=== PATIENT | female | born 1975 | race Caucasian/White ===

== ENCOUNTER 2023-05-20 11:40 | Observation (INO) | payer MEDICAID, SELFPAY ==
[2023-05-20 11:41] VITALS: BP 135/86; PULSE 99; RESP 16; TEMP 36.1; O2SAT 99
--- NOTE | 2023-05-20 12:11 | EX.ED.SAOD ---
HPI History of Present Illness Chief Complaint: Substance Abuse Informant: patient Narrative Narrative: Presents here from [facility] in [place] for detox from fentanyl. She states she snorts fentanyl for months now. Last use was 2 days ago. She has been at the [facility] for 2 days. She states nausea and vomiting. Denies abdominal pain. She is a type I diabetic on insulin. She does not check her sugars. Denies fevers. She states she quit alcohol years ago. She also smokes marijuana cannot tell me when the last time she smoked marijuana. She is postmenopausal. Denies any allergies. She states she has not had help for detox in the past. Prior similar symptoms: Yes PFSH PFSH Allergy/AdvReac Type Severity Reaction Status Date / Time No Known Allergies Allergy Verified 05/20/23 11:41 Social History Smoking Status: Current every day smoker tobacco type: cigarettes ROS ROS ED Constitutional Constitutional ED: Denies chills, fever(s) or sweats Eyes Eyes: Denies change in vision ENT ENT ED: Denies dysphagia or sore throat Cardiovascular Cardiovascular: Denies chest pain, leg edema, palpitations or racing heartbeat Respiratory/Chest Respiratory/Chest: Denies cough, dyspnea or dyspnea on exertion Gastrointestinal Gastrointestinal: Reports nausea and vomiting; Denies abdominal pain or diarrhea Genitourinary Genitourinary ED: Denies dysuria, hematuria or urinary frequency Musculoskeletal Musculoskeletal: Denies back pain, extremity pain or neck pain Integumentary Denies rash or wounds Neurologic Neurologic: Denies headache(s), paresthesias or weakness EXAM Physical Exam Const Vital Signs: 05/20/23 11:41 Temperature 97.0 F L Temperature Source Temporal Pulse Rate 99 Respiratory Rate 16 Blood Pressure 135/86 H Blood Pressure Mean 102 Pulse Ox 99 Oxygen Delivery Method Room Air Positive cachectic Constitutional Narrative: Nontoxic General Appearance ED: cachectic Nutritional Appearance: cachectic HEENT Reports moist mucous membranes normocephalic and atraumatic Eyes PERRL, EOMs intact bilaterally and conjunctivae normal General Eye ED: Yes normal appearance of both eyes Neck no lymphadenopathy and supple General: Negative for tenderness Chest Wall Chest: Negative for tenderness Resp normal respiratory effort and normal air movement Effort and Inspection: symmetric chest movement; Negative for respiratory distress Cardio regular rate, regular rhythm and no murmurs Peripheral Pulses: pulses 2+ throughout GI normal to inspection, nondistended, normoactive bowel sounds and non-tender Palpation: Negative for guarding or rebound tenderness present Back/Spine no CVA tenderness and no thoracic nor lumbar tenderness Extremity normal to inspection General Extremety ED: Negative for edema or tenderness General Extremity: Negative for edema Neuro oriented x3 and no sensory deficits noted Sensorium / Orientation: awake and alert Psych Psych Narrative: Initially agitated at times when questioning however was able to calm down. Denies any suicidal or homicidal ideations. Skin no rashes or lesions noted and no wounds MDM MDM MDM Narrative Medical decision making narrative: Interventions / MDM: Differential diagnosis: Opioid dependence, nausea vomiting, diabetes Diagnosis considered but do not suspect: DKA My EKG interpretation: N/A Imaging independently reviewed and interpreted by myself: N/A External documents reviewed: N/A Test considered but not ordered:N/A ED course: Patient vital stable nontoxic. Initial evaluation she was agitated, left the room she calmed down was able to reevaluate the patient. Last use 2 days ago with nausea and vomiting. Will check labs to rule out any signs of DKA. Clinically no signs of DKA. Fingerstick will be ordered. Will give oral Zofran. 1330: Glucose 293, gap Is normal. No DKA. Patient ate a meal per nursing, discussed her insulin regimen, she only takes 30 units long-acting at night. She does not do short acting. We will give 5 units of short acting Humalog. Patient not currently vomiting. 1340: I spoke with hospitalist Dr. Way discussed patient's history for admission for opioid dependence and withdrawal symptoms. Re-evaluation: stable Disposition discussed with patient/family/significant other: Patient Case discussed with consulting clinician: Hospitalist This note was generated with Evergram dictation software. It may contain incorrect words, spelling, and punctuation that were not noted in checking the note before signing. Lab Data Attestation: I reviewed the patient's lab results. Labs: Laboratory Results - last 24 hr 05/20/23 05/20/23 05/20/23 12:06 12:18 12:40 WBC 7.6 RBC 5.18 Hgb 14.8 Hct 44.5 MCV 85.9 MCH 28.6 MCHC 33.3 RDW Std Deviation 42.1 RDW Coeff of Lisette 13.4 Plt Count 500 H MPV 8.7 Immature Gran % (Auto) 0.700 Neut % (Auto) 71.3 H Lymph % (Auto) 23.5 York % (Auto) 3.7 Eos % (Auto) 0.3 Baso % (Auto) 0.5 Absolute Neuts (auto) 5.4 Absolute Lymphs (auto) 1.79 Nucleated RBC % 0 Sodium 134 L Potassium 3.5 Chloride 103 Carbon Dioxide 25.0 Anion Gap 6 BUN 11 Creatinine 0.84 Estim Creat Clear Calc 50.65 Est GFR (MDRD) Af Amer 92 Est GFR (MDRD) Non-Af 76 BUN/Creatinine Ratio 13.0 Glucose 293 H Calcium 8.7 Urine Test Negative Urine Opiates Screen POSITIVE H Urine Methadone Screen NEGATIVE Ur Barbiturates Screen NEGATIVE Ur Phencyclidine Scrn NEGATIVE Ur Amphetamines Screen POSITIVE H MDMA (Ecstasy) Screen NEGATIVE U Benzodiazepines Scrn NEGATIVE Urine Cocaine Screen POSITIVE H U Cannabinoids Screen POSITIVE H Ur Drug Screen Comment Ethyl Alcohol < 3.0 POC Glucose 265 H Discharge Plan Dx/Rx/DC Orders Clinical Impression: Opioid dependence, Type 1 diabetes mellitus, Nausea & vomiting Disposition Disposition: Acute Care Hospital [facility] Discharge Date/Time: 05/20/23 15:19
[2023-05-20 12:18] VITALS: BMI 16.5
[2023-05-20] MEDS: Ondansetron ODT 4 MG Tablet PO (12:19)
[2023-05-20 12:37] LABS: Bedside Glucose 265 mg/dL (74-106)
[2023-05-20 12:39] LABS: Internal QC Validated? YES +Cl - CLEAR BKGD; Pregnancy, Urine Negative Negative
[2023-05-20 12:50] LABS: Absolute Lymphocyte Count 1.79 X10^3/uL (0.83-4.51); Absolute Neutrophil Count 5.4 X10^3/uL (2.0-7.7); Basophil# 0.04 X10^3/uL; Basophil% 0.5 % (0-1); Eosinophil# 0.02 X10^3/uL; Eosinophils% 0.3 % (0-5); Hematocrit 44.5 % (37-47); Hemoglobin 14.8 g/dL (12.0-15.0); Lymphocyte # 1.79 X10^3/ul (0.83-4.51); Lymphocyte % 23.5 % (19-41); Mean Corp Hgb Conc 33.3 g/dL (32-36); Mean Corpuscular Hgb 28.6 pg (27.0-32.0); Mean Corpuscular Volume 85.9 fL (81-99); Mean Platelet Vol. 8.7 fl (6.2-12.0); Monocyte# 0.28 X10^3/uL; Monocyte% 3.7 % (0-10); NRBC Flagged by Analyzer 0 % (0-5); Neutrophil # 5.44 X10^3/uL (2.7-7.7); Neutrophil % 71.3 % (47-70); Platelet Count 500 K/mm3 (150-450); RBC Distribution Width CV 13.4 % (11.6-14.6); RBC Distribution Width SD 42.1 fl (35.1-43.9); Red Blood Count 5.18 M/mm3 (4.2-5.4); White Blood Count 7.6 K/mm3 (4.4-11.0)
[2023-05-20 13:02] LABS: Anion Gap 6 (5-15); BUN 11 mg/dL (7-18); Calcium,Total 8.7 mg/dL (8.5-10.1); Chloride 103 mmol/L (98-107); Creatinine, Serum 0.84 mg/dL (0.55-1.02); EST Glomerular Filtration Rate 76 mL/min (>60); Est Glom Filt Rate - Afr Amer 92 mL/min (>60); Estimated Creatinine Clearance 50.65 ml/min; Glucose 293 mg/dL (74-106); Potassium 3.5 mmol/L (3.5-5.1); Sodium Level 134 mmol/L (136-145)
--- NOTE | 2023-05-20 13:16 | CM.ED ---
Social Work Referral Source: case find Referral Reason: no PCP/ [facility] SW met with patient and introduced herself and role as [facility] SW. Patient seated on hospital bed and agreeable to speak with SW. SW inquired about patient's insurance and current PCP. Patient verified insurance and reports she does have a PCP, Dr. Roz Woods in [place]. Patient declined a list of PCPs accepting new patients in network with her insurance. SW then inquired about patient's knowledge of the RAMP program and recent usage; patient reports being unsure of what to expect and reports fentanyl use. SW reviewed RAMP program including patient's belongings being locked up, no visitors and meeting with detox coordinator to discuss discharge/after care planning. Patient reports understanding and has no other questions at this time. Antonieta Shetty MSW, DEENA
--- NOTE | 2023-05-20 13:40 | NURSING ---
DR KEYANNA NOBLES
[2023-05-20 13:45] LABS: Amphetamine Urine VISTA POSITIVE (<1000 ng/mL); Barbiturate Urine VISTA NEGATIVE (< 200 ng/mL); Benzodiazepine Urine VISTA NEGATIVE (< 200 ng/mL); Cocaine Urine VISTA POSITIVE (< 300 ng/mL); Ecstacy Urine VISTA NEGATIVE (< 500 ng/mL); Methadone Urine VISTA NEGATIVE (< 300 ng/mL); PCP Urine VISTA NEGATIVE (< 25 ng/mL); THC Urine VISTA POSITIVE (< 50 ng/mL); Vista UDS pH Range 7
[2023-05-20] MEDS: Insulin Lispro 100 UNIT/ML INSULN.PEN SC ×2 (13:48→17:51)
[2023-05-20 13:49] LABS: Alcohol, Blood (Medical)-Serum < 3.0 mg/dL
--- NOTE | 2023-05-20 14:21 | HP.PCM_ITS ---
HPI - General General Date of Admission: 05/20/23 Date of Service: 05/20/23 Chief Complaint: Withdrawal from opioids (fentanyl) HPI Narrative UBALDO MORELOS, is a 47 F with a history of type 1 diabetes and fentanyl abuse and who presents to the hospital today with opioid withdrawal. She states she has been feeling overall uncomfortable has also had nausea and vomiting. Last use of fentanyl was 2 days ago. States she injects and smokes fentanyl. Denies any diarrhea or any abdominal cramps at this time. Patient also smokes marijuana. [facility] Allergy/AdvReac Type Severity Reaction Status Date / Time No Known Allergies Allergy Verified 05/20/23 11:41 Social History Smoking Status: Current every day smoker tobacco type: cigarettes ROS ROS Narrative Denies any chest pain or shortness of breath. All other systems reviewed and essentially negative or as above in the body of the history. Vital Signs Vital Signs Vital Signs: 05/20/23 11:41 Temperature 36.1 C L Temperature Source Temporal Pulse Rate 99 Respiratory Rate 16 Blood Pressure 135/86 H Blood Pressure Mean 102 Pulse Ox 99 Oxygen Delivery Method Room Air Weight Weight: 39.6 kg Body Mass Index (BMI) 16.5 Physical Exam Narrative General exam. Middle-aged woman who appears older than stated age, chronically ill appearing and cachectic HEENT. Oral mucosa slightly dry no pallor jaundice Neck. Neck is supple Heart. First and second heart sounds heard no murmurs Lungs. 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 Conscious alert and oriented x3. Cranial 2-12 grossly intact. Results Medical Records Data Attestation: I reviewed the patient's medical records Lab / Micro Data Attestation: I reviewed the patient's lab results. 05/20/23 12:40 05/20/23 12:40 Labs: Laboratory Results - last 24 hr 05/20/23 12:06: Urine Test Negative, Urine Opiates Screen POSITIVE H, Urine Methadone Screen NEGATIVE, Ur Barbiturates Screen NEGATIVE, Ur Phencyclidine Scrn NEGATIVE, Ur Amphetamines Screen POSITIVE H, MDMA (Ecstasy) Screen NEGATIVE, U Benzodiazepines Scrn NEGATIVE, Urine Cocaine Screen POSITIVE H, U Cannabinoids Screen POSITIVE H, Ur Drug Screen Comment 05/20/23 12:18: POC Glucose 265 H 05/20/23 12:40: WBC 7.6, RBC 5.18, Hgb 14.8, Hct 44.5, MCV 85.9, MCH 28.6, MCHC 33.3, RDW Std Deviation 42.1, RDW Coeff of Lisette 13.4, Plt Count 500 H, MPV 8.7, Immature Gran % (Auto) 0.700, Neut % (Auto) 71.3 H, Lymph % (Auto) 23.5, Mcclain % (Auto) 3.7, Eos % (Auto) 0.3, Baso % (Auto) 0.5, Absolute Neuts (auto) 5.4, Absolute Lymphs (auto) 1.79, Nucleated RBC % 0, Sodium 134 L, Potassium 3.5, Chloride 103, Carbon Dioxide 25.0, Anion Gap 6, BUN 11, Creatinine 0.84, Estim Creat Clear Calc 50.65, Est GFR (MDRD) Af Amer 92, Est GFR (MDRD) Non-Af 76, BUN/Creatinine Ratio 13.0, Glucose 293 H, Calcium 8.7, Ethyl Alcohol < 3.0 ABG Data Attestation: I personally reviewed and interpreted this ABG as follows: Assessment & Plan Assessment/Plan (1) Opioid withdrawal: PLAN: Plan Assessment and plan 1. Opioid abuse with fentanyl presenting with opiate withdrawal. Will admit to general medical floor on telemetry. Started on opiate withdrawal protocol with buprenorphine. Consult social work specialist to assist with commencing short-term long- term treatment. 2. Type 1 diabetes. Will check A1c to determine what long-term control has been like. Patient takes 30 units of basal insulin at home without any short acting insulin for mealtimes. We will start patient on 20 units of L[address] and place on insulin sliding scale. Monitor with Accu-Cheks before meals and at bedtime. Charges/Coding Visit Charges Inpatient E&M: 42612 Init Hosp L3
[2023-05-20 15:17] VITALS: BP 130/87; PULSE 89; RESP 14; TEMP 36.4; O2SAT 97
[2023-05-20 16:04] VITALS: BMI 14.9
[2023-05-20 16:41] VITALS: BP 166/88; PULSE 88; RESP 17; TEMP 36.8; O2SAT 98
[2023-05-20] MEDS: Ondansetron 8 MG Tablet PO (16:52)
[2023-05-20 17:16] LABS: Bedside Glucose 256 mg/dL (74-106)
[2023-05-20] MEDS: Buprenorphine HCl 2 MG TAB.SUBL SL (17:50)
[2023-05-20] MEDS: Insulin Glargine-YFGN 100 UNIT/ML Pen 20 UNIT SC (17:51)
[2023-05-20 20:46] VITALS: BP 123/86; PULSE 110; RESP 20; TEMP 37.2; O2SAT 98
[2023-05-20] MEDS: hydrOXYzine PAM 25 MG Capsule 50 MG PO (20:48)
[2023-05-20] MEDS: MELATONIN 3 MG TABLET PO (20:48)
[2023-05-20] MEDS: Gabapentin 300 MG Capsule PO (20:48)
[2023-05-21 01:45] VITALS: BP 141/97; PULSE 91; RESP 16; TEMP 36.6; O2SAT 98
[2023-05-21] MEDS: Dicyclomine 10 MG Capsule 20 MG PO (01:56)
[2023-05-21] MEDS: cloNIDine HCl 0.1 MG Tablet PO ×2 (01:56→20:32)
[2023-05-21] MEDS: Buprenorphine HCl 2 MG TAB.SUBL SL ×3 (01:56→17:18)
[2023-05-21 04:56] VITALS: BP 128/75; PULSE 95; RESP 16; TEMP 36.7; O2SAT 98
[2023-05-21] MEDS: Insulin Lispro 100 UNIT/ML INSULN.PEN SC ×4 (06:30→21:54)
[2023-05-21 06:57] LABS: Bedside Glucose 428 mg/dL (74-106)
[2023-05-21 07:47] LABS: Hemoglobin A1c 13.8 % (3.8-5.6)
[2023-05-21 09:05] VITALS: BP 131/71; PULSE 102; RESP 18; TEMP 37.1; O2SAT 96
[2023-05-21] MEDS: Ensure Plus High Protein 120 ML LIQUID PO ×2 (09:05→11:12)
[2023-05-21] MEDS: Gabapentin 300 MG Capsule PO (09:05)
[2023-05-21] MEDS: Enoxaparin 40 MG/0.4 ML Syringe SC (09:07)
[2023-05-21 11:31] LABS: Bedside Glucose 298 mg/dL (74-106)
[2023-05-21] MEDS: Fluconazole 100 MG Tablet PO (12:11)
[2023-05-21 15:05] VITALS: BP 155/90; PULSE 95; RESP 18; TEMP 36.8; O2SAT 99
[2023-05-21] MEDS: Glucerna Shake 120 ML LIQUID PO ×3 (15:16→21:08)
--- NOTE | 2023-05-21 16:21 | CASEMGMT ---
RN CM into pt room, pt lying in bed. Pt is interested in having a BGM and obtaining here at [facility]. TC to [facility] Retail pharmacy, they can deliver to room. Rx signed by hospitalistayaz to retail pharmacy. Updated charge nurse for education to pt when arrives to floor. Pt denies any further needs at this time.
--- NOTE | 2023-05-21 16:30 | CASEMGMT ---
Social Work SW received referral from Marketing Consultant. SW met with pt and introduced self and role of SW. Pt states she was evicted from her home in October and has been living in the [facility] since this time. Pt states that she is not eating or caring for her health. Pt denies having support system. Pt stating she is hopeful she can go to [facility] inpatient treatment center at time of discharge and that they will assist her with finding housing after she completes drug rehab program. Support and encouragement provided. Addiction Therapist to follow up for d/c planning. RNCM notified of need for glucometer. GAEL Nicholson
[2023-05-21] MEDS: Insulin Glargine-YFGN 100 UNIT/ML Pen 20 UNIT SC (17:13)
[2023-05-21 17:25] LABS: Bedside Glucose 207 mg/dL (74-106)
--- NOTE | 2023-05-21 17:38 | PCM.PN.HOSP ---
Reason for Visit Reason for Visit: Diagnoses Opioid use, unspecified with withdrawal (05/20/23) Subjective Subjective Patient was seen and examined today, I talked with addiction mental health social worker about her care, there is a plan for perhaps getting the patient into an inpatient detox facility when she is discharged from the hospital here. Patient complains about a raised area on her left forearm where she injects, she is concerned it is an abscess, she also is concerned that if she is placed on antibiotics she would get a yeast infection. I discussed these things with her today. Objective Data Objective Data Vital Signs: Vital Signs Temp Pulse Resp BP Pulse Ox O2 Del Method 98.2 F 95 18 155/90 H 99 Room Air 05/21/23 15:05 05/21/23 15:05 05/21/23 15:05 05/21/23 15:05 05/21/23 15:05 05/21/23 15:05 Oxygen Delivery Method Room Air Weight: 35.834 kg Body Mass Index (BMI) 14.9 Intake & Output: Intake and Output for Last 24 Hours 05/19/23 05/20/23 05/21/23 23:59 23:59 23:59 Intake Total 350 / 350 350 / 350 Balance 350 / 350 350 / 350 Medical Nutrition Assessment Dietitian: Malnutrition Criteria Met Start: 05/21/23 13:25 Freq: Status: Active Protocol: Document 05/21/23 13:25 MACHELLE (Rec: 05/21/23 13:26 MACHELLE [id number]) Nutrition Malnutrition Evidence of Malnutrition Exists Yes Malnutrition (severe): Chronic,Social/Behavioral/ Environmental Evidenced By Suboptimal Energy Intake ( Severe),Weight Loss (Severe), Physical Changes (Severe) Clinical Problem Altered Nutrient-Related Laboratory Values Etiology related to diabetes Signs/Symptoms as evidenced by gluc 293 and A1c = 13.8 Status Active Problem Chronic Disease or Condition Related Malnutrition Etiology related to drug abuse and inadequate energy intake Signs/Symptoms as evidenced by 28.4% unintended wt loss and pt meeting <75% of est nutritional needs x 1 yr - obvious fat / muscle wasting throughout body. Status Active Problem Recommendation Dietitian Recommendations/Changes Will change diet to 1800 tereza to better meet pt est nutritional needs for wt gain Will change ONS from ensure plus high protein to glucerna shake d/t issues w/ increased gluc levels Monitor for s/s of refeeding syndrome Lab / Micro Data 05/20/23 12:40 05/20/23 12:40 Labs: Laboratory Results - last 24 hr 05/20/23 12:40: Hemoglobin A1c 13.8 H 05/21/23 06:27: POC Glucose 428 H 05/21/23 11:10: POC Glucose 298 H 05/21/23 16:10: POC Glucose 207 H Physical Exam Const alert, oriented x3 and no apparent distress Constitutional Narrative: Patient appears much older than her stated age, patient appears very cachectic General Appearance: cooperative, well kempt and well developed Orientation / Consciousness: awake, oriented to person, oriented to place and oriented to time HEENT normocephalic, head/scalp atraumatic and moist oral mucous membranes Eyes PERRL, EOMs intact bilaterally and conjunctivae normal Neck no lymphadenopathy, supple, no JVD, thyroid normal and no carotid bruits General: trachea midline Resp normal respiratory effort, no retractions, no use of accessory muscles and clear to auscultation bilaterally Auscultation: Negative for rales, rhonchi or wheezes Cardio regular rate, regular rhythm, S1 normal heart sound, S2 normal heart sound, no murmurs, no rub and no gallops GI normal to inspection, nondistended, normoactive bowel sounds, soft to palpation, non-tender and non-distended Extremity Extremity Narrative: Patient has a raised area approximately 2 cm over the anterior surface of the left forearm just distal to the elbow area, this area is movable and fluctuant Skin Skin Narrative: Patient has a fluctuant movable area underneath the skin of her left forearm just distal to the left elbow area on the upper surface of the forearm, no redness is noted around the area. Neuro oriented x3, CN's II-XII intact bilaterally, moves all extremities, no focal motor deficits and no sensory deficits noted Sensorium / Orientation: awake, alert, oriented to person, oriented to place and oriented to time Speech: speech normal Psych affect normal Assessment & Plan Assessment/Plan (1) Opioid withdrawal: PLAN: Plan 1. Acute opiate withdrawal-patient will continue on her present medications #2 polysubstance abuse-complicates care, medical course, recovery, and prognosis #3 chronic severe protein and caloric malnutrition-as evidenced by signs and symptoms of malnutrition resulting from less than 75% p.o. intake/inadequate energy intake and 28.4% unintended weight loss x1 year-Glucerna shake dietary supplement will be supplied, and increased energy diet and increase protein diet as well as increase carbohydrate diet was ordered by nutritional services #4 type 1 diabetes-blood sugars will be monitored, I filled out a prescription for the patient to get a glucose monitor as an outpatient. #5 superficial abscess of the left forearm-I placed the patient on doxycycline and placed her on oral Diflucan for prevention of yeast infection. Total clinical time spent by myself addressing the patient's medical issues, reviewing all of her data, and collaborating with patient's care team: 35 minutes Charges/Coding Visit Charges Inpatient E&M: 44323 Subs Hosp L2
[2023-05-21] MEDS: hydrOXYzine PAM 25 MG Capsule 50 MG PO (20:33)
[2023-05-21 21:05] VITALS: BP 160/75; PULSE 95; RESP 16; TEMP 36.6; O2SAT 100
[2023-05-21] MEDS: Doxycycline 100 MG CAPSULE PO (21:08)
[2023-05-21] MEDS: traZODone 100 MG Tablet PO (21:08)
[2023-05-21] MEDS: MELATONIN 3 MG TABLET PO (21:08)
[2023-05-21 21:29] LABS: Bedside Glucose 341 mg/dL (74-106)
[2023-05-22] MEDS: Buprenorphine HCl 2 MG TAB.SUBL SL ×3 (01:53→17:29)
[2023-05-22 06:37] LABS: Bedside Glucose 99 mg/dL (74-106)
[2023-05-22 10:49] VITALS: BP 127/74; PULSE 83; RESP 16; TEMP 36.8; O2SAT 98
[2023-05-22] MEDS: Doxycycline 100 MG CAPSULE PO ×2 (10:53→21:24)
[2023-05-22] MEDS: Fluconazole 100 MG Tablet PO (10:54)
[2023-05-22] MEDS: Enoxaparin 40 MG/0.4 ML Syringe SC (10:55)
[2023-05-22] MEDS: Glucerna Shake 120 ML LIQUID PO ×4 (10:55→21:24)
[2023-05-22] MEDS: Insulin Lispro 100 UNIT/ML INSULN.PEN SC ×3 (11:25→21:29)
[2023-05-22 11:46] LABS: Bedside Glucose 219 mg/dL (74-106)
[2023-05-22] MEDS: Gabapentin 400 MG Capsule PO (16:04)
[2023-05-22 16:05] VITALS: BP 137/81; PULSE 68; RESP 16; TEMP 36.6; O2SAT 98
[2023-05-22] MEDS: Insulin Glargine-YFGN 100 UNIT/ML Pen 20 UNIT SC (16:59)
[2023-05-22 17:18] LABS: Bedside Glucose 273 mg/dL (74-106)
--- NOTE | 2023-05-22 17:24 | PCM.PN.HOSP ---
Reason for Visit Reason for Visit: Diagnoses Opioid use, unspecified with withdrawal (05/20/23) Subjective Subjective Patient was seen and examined today, she complains of neuropathic pain, she states that she takes gabapentin as an outpatient-patient is not on program gabapentin here but she is getting it as needed but does not seem to realize it. I told her that I would increase her gabapentin to 400 mg every 8 hours, she states she takes it at night but she has not been getting it at night. I have elected at this time to have her gabapentin remain as as needed. Objective Data Objective Data Vital Signs: Vital Signs Temp Pulse Resp BP Pulse Ox O2 Del Method 98 F 68 16 137/81 H 98 Room Air 05/22/23 16:05 05/22/23 16:05 05/22/23 16:05 05/22/23 16:05 05/22/23 16:05 05/22/23 16:05 Oxygen Delivery Method Room Air Weight: 35.834 kg Body Mass Index (BMI) 14.9 Intake & Output: Intake and Output for Last 24 Hours 05/20/23 05/21/23 05/22/23 23:59 23:59 23:59 Intake Total 350 / 350 350 / 350 Balance 350 / 350 350 / 350 Medical Nutrition Assessment Dietitian: Malnutrition Criteria Met Start: 05/21/23 13:25 Freq: Status: Active Protocol: Document 05/21/23 13:25 MACHELLE (Rec: 05/21/23 13:26 MACHELLE [id number]) Nutrition Malnutrition Evidence of Malnutrition Exists Yes Malnutrition (severe): Chronic,Social/Behavioral/ Environmental Evidenced By Suboptimal Energy Intake ( Severe),Weight Loss (Severe), Physical Changes (Severe) Clinical Problem Altered Nutrient-Related Laboratory Values Etiology related to diabetes Signs/Symptoms as evidenced by gluc 293 and A1c = 13.8 Status Active Problem Chronic Disease or Condition Related Malnutrition Etiology related to drug abuse and inadequate energy intake Signs/Symptoms as evidenced by 28.4% unintended wt loss and pt meeting <75% of est nutritional needs x 1 yr - obvious fat / muscle wasting throughout body. Status Active Problem Recommendation Dietitian Recommendations/Changes Will change diet to 1800 tereza to better meet pt est nutritional needs for wt gain Will change ONS from ensure plus high protein to glucerna shake d/t issues w/ increased gluc levels Monitor for s/s of refeeding syndrome Lab / Micro Data 05/20/23 12:40 05/20/23 12:40 Labs: Laboratory Results - last 24 hr 05/21/23 16:10: POC Glucose 207 H 05/21/23 21:06: POC Glucose 341 H 05/22/23 06:18: POC Glucose 99 05/22/23 11:24: POC Glucose 219 H 05/22/23 16:57: POC Glucose 273 H Physical Exam Narrative alert, oriented x3 and no apparent distress Constitutional Narrative: Patient appears much older than her stated age, patient appears very cachectic General Appearance: cooperative, well kempt and well developed Orientation / Consciousness: awake, oriented to person, oriented to place and oriented to time HEENT normocephalic, head/scalp atraumatic and moist oral mucous membranes Eyes PERRL, EOMs intact bilaterally and conjunctivae normal Neck no lymphadenopathy, supple, no JVD, thyroid normal and no carotid bruits General: trachea midline Resp normal respiratory effort, no retractions, no use of accessory muscles and clear to auscultation bilaterally Auscultation: Negative for rales, rhonchi or wheezes Cardio regular rate, regular rhythm, S1 normal heart sound, S2 normal heart sound, no murmurs, no rub and no gallops GI normal to inspection, nondistended, normoactive bowel sounds, soft to palpation, non-tender and non-distended Extremity Extremity Narrative: Patient has a raised area approximately 2 cm over the anterior surface of the left forearm just distal to the elbow area, this area is movable and fluctuant Skin Skin Narrative: Patient has a fluctuant movable area underneath the skin of her left forearm just distal to the left elbow area on the upper surface of the forearm, no redness is noted around the area. Neuro oriented x3, CN's II-XII intact bilaterally, moves all extremities, no focal motor deficits and no sensory deficits noted Sensorium / Orientation: awake, alert, oriented to person, oriented to place and oriented to time Speech: speech normal Psych affect normal Assessment & Plan Assessment/Plan (1) Opioid withdrawal: PLAN: Plan 1. Acute opiate withdrawal-patient will continue on her present medications #2 polysubstance abuse-complicates care, medical course, recovery, and prognosis #3 chronic severe protein and caloric malnutrition-as evidenced by signs and symptoms of malnutrition resulting from less than 75% p.o. intake/inadequate energy intake and 28.4% unintended weight loss x1 year-Glucerna evelynke dietary supplement will be supplied, and increased energy diet and increase protein diet as well as increase carbohydrate diet was ordered by nutritional services #4 type 1 diabetes-blood sugars will be monitored, I filled out a prescription for the patient to get a glucose monitor as an outpatient. #5 superficial abscess of the left forearm-I placed the patient on doxycycline and placed her on oral Diflucan for prevention of yeast infection. 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 Total clinical time spent by myself addressing the patient's medical issues, reviewing all of her data, and collaborating with patient's care team: 25 minutes Charges/Coding Visit Charges Inpatient E&M: 05575 Subs Hosp L1
[2023-05-22 22:00] VITALS: BP 147/63; PULSE 82; RESP 16; TEMP 36.6; O2SAT 98
[2023-05-22 22:02] LABS: Bedside Glucose 157 mg/dL (74-106)
[2023-05-23] MEDS: hydrOXYzine PAM 25 MG Capsule 50 MG PO ×2 (00:07→13:57)
[2023-05-23] MEDS: Gabapentin 400 MG Capsule PO ×3 (00:08→21:14)
[2023-05-23 04:00] VITALS: BP 153/83; PULSE 88; RESP 16; TEMP 36.8; O2SAT 99
[2023-05-23] MEDS: Buprenorphine HCl 2 MG TAB.SUBL SL (05:59)
[2023-05-23] MEDS: Insulin Lispro 100 UNIT/ML INSULN.PEN SC ×4 (06:40→21:19)
[2023-05-23 07:00] LABS: Bedside Glucose 368 mg/dL (74-106)
--- NOTE | 2023-05-23 08:32 | PCM.PN.HOSP ---
Reason for Visit Reason for Visit: Diagnoses Opioid use, unspecified with withdrawal (05/20/23) Subjective Subjective Patient was seen and examined today, she is still complaining of discomfort over the superficial abscess on her left forearm, she remains on doxycycline at this time. Patient's blood sugar was high this morning, I elected to increase her long-acting insulin to 25 units daily with dinner. Objective Data Objective Data Vital Signs: Vital Signs Temp Pulse Resp BP Pulse Ox O2 Del Method 98.3 F 88 16 153/83 H 99 Room Air 05/23/23 04:00 05/23/23 04:00 05/23/23 04:00 05/23/23 04:00 05/23/23 04:00 05/23/23 04:00 Oxygen Delivery Method Room Air Weight: 35.834 kg Body Mass Index (BMI) 14.9 Intake & Output: Intake and Output for Last 24 Hours 05/21/23 05/22/23 05/23/23 23:59 23:59 23:59 Intake Total 350 / 350 300 / 300 Balance 350 / 350 300 / 300 Medical Nutrition Assessment Dietitian: Malnutrition Criteria Met Start: 05/21/23 13:25 Freq: Status: Active Protocol: Document 05/21/23 13:25 MACHELLE (Rec: 05/21/23 13:26 MACHELLE [id number]) Nutrition Malnutrition Evidence of Malnutrition Exists Yes Malnutrition (severe): Chronic,Social/Behavioral/ Environmental Evidenced By Suboptimal Energy Intake ( Severe),Weight Loss (Severe), Physical Changes (Severe) Clinical Problem Altered Nutrient-Related Laboratory Values Etiology related to diabetes Signs/Symptoms as evidenced by gluc 293 and A1c = 13.8 Status Active Problem Chronic Disease or Condition Related Malnutrition Etiology related to drug abuse and inadequate energy intake Signs/Symptoms as evidenced by 28.4% unintended wt loss and pt meeting <75% of est nutritional needs x 1 yr - obvious fat / muscle wasting throughout body. Status Active Problem Recommendation Dietitian Recommendations/Changes Will change diet to 1800 tereza to better meet pt est nutritional needs for wt gain Will change ONS from ensure plus high protein to glucerna shake d/t issues w/ increased gluc levels Monitor for s/s of refeeding syndrome Lab / Micro Data 05/20/23 12:40 05/20/23 12:40 Labs: Laboratory Results - last 24 hr 05/22/23 11:24: POC Glucose 219 H 05/22/23 16:57: POC Glucose 273 H 05/22/23 21:28: POC Glucose 157 H 05/23/23 06:39: POC Glucose 368 H Physical Exam Narrative alert, oriented x3 and no apparent distress Constitutional Narrative: Patient appears much older than her stated age, patient appears very cachectic General Appearance: cooperative, well kempt and well developed Orientation / Consciousness: awake, oriented to person, oriented to place and oriented to time HEENT normocephalic, head/scalp atraumatic and moist oral mucous membranes Eyes PERRL, EOMs intact bilaterally and conjunctivae normal Neck no lymphadenopathy, supple, no JVD, thyroid normal and no carotid bruits General: trachea midline Resp normal respiratory effort, no retractions, no use of accessory muscles and clear to auscultation bilaterally Auscultation: Negative for rales, rhonchi or wheezes Cardio regular rate, regular rhythm, S1 normal heart sound, S2 normal heart sound, no murmurs, no rub and no gallops GI normal to inspection, nondistended, normoactive bowel sounds, soft to palpation, non-tender and non-distended Extremity Extremity Narrative: Patient has a raised area approximately 2 cm over the anterior surface of the left forearm just distal to the elbow area, this area is movable and fluctuant Skin Skin Narrative: Patient has a fluctuant movable area underneath the skin of her left forearm just distal to the left elbow area on the upper surface of the forearm, no redness is noted around the area. Neuro oriented x3, CN's II-XII intact bilaterally, moves all extremities, no focal motor deficits and no sensory deficits noted Sensorium / Orientation: awake, alert, oriented to person, oriented to place and oriented to time Speech: speech normal Psych affect normal Assessment & Plan Assessment/Plan (1) Opioid withdrawal: PLAN: Plan 1. Acute opiate withdrawal-patient will continue on her present medications #2 polysubstance abuse-complicates care, medical course, recovery, and prognosis #3 chronic severe protein and caloric malnutrition-as evidenced by signs and symptoms of malnutrition resulting from less than 75% p.o. intake/inadequate energy intake and 28.4% unintended weight loss x1 year-Glucerna shake dietary supplement will be supplied, and increased energy diet and increase protein diet as well as increase carbohydrate diet was ordered by nutritional services #4 type 1 diabetes-blood sugars will be monitored, I filled out a prescription for the patient to get a glucose monitor as an outpatient. #5 superficial abscess of the left forearm-patient remains on doxycycline, I do not think the abscessed area on her left forearm is getting larger, it is not reddened #6 neuropathy secondary to type 1 diabetes-again patient will receive gabapentin as needed 400 mg 3 times daily. Total clinical time spent by myself addressing the patient's medical issues, reviewing all of her data, and collaborating with patient's care team: 25 minutes Charges/Coding Visit Charges Inpatient E&M: 96868 Subs Hosp L1
[2023-05-23] MEDS: Doxycycline 100 MG CAPSULE PO ×2 (09:54→21:14)
[2023-05-23] MEDS: Enoxaparin 40 MG/0.4 ML Syringe SC (09:54)
[2023-05-23] MEDS: Fluconazole 100 MG Tablet PO (09:54)
[2023-05-23 10:00] VITALS: BP 128/69; PULSE 96; RESP 16; TEMP 36.8; O2SAT 98
[2023-05-23] MEDS: Senna Tablet 2 TABLET PO (11:25)
[2023-05-23 11:44] LABS: Bedside Glucose 257 mg/dL (74-106)
--- NOTE | 2023-05-23 12:55 | NS ---
Addendum entered and electronically signed by Rachelel Camargo 05/23/23 13:08: Diet will be liberalized to carbohydrate-controlled to allow for extra calories/protein at meals so that patient is more content and not still hungry. Original Note: Pt complaining to dietary staff that she is not receiving enough food at meals and is still hungry. Pt with BMI 14.9 and with reported food insecurity---will change diet to carbohydrate-controlled without caloric restriction and allow extra protein at meals if pt desires. Discussed with Shahida in diet office to confirm dietary changes. Rachelle Camargo, MS, RD, LD
[2023-05-23] MEDS: Glucerna Shake 120 ML LIQUID PO ×2 (13:57→16:28)
[2023-05-23 16:00] VITALS: BP 128/62; PULSE 72; RESP 16; TEMP 36.8; O2SAT 96
[2023-05-23] MEDS: Insulin Glargine-YFGN 100 UNIT/ML Pen 25 UNIT SC (16:29)
[2023-05-23 16:35] LABS: Bedside Glucose 314 mg/dL (74-106)
[2023-05-23 20:09] VITALS: BP 156/70; PULSE 102; RESP 16; TEMP 37.4; O2SAT 97
[2023-05-23] MEDS: traZODone 100 MG Tablet PO (21:13)
[2023-05-23 23:22] LABS: Bedside Glucose 292 mg/dL (74-106)
[2023-05-24 02:00] VITALS: BP 127/59; PULSE 96; RESP 18; TEMP 36.6; O2SAT 96
[2023-05-24] MEDS: Insulin Lispro 100 UNIT/ML INSULN.PEN SC ×3 (06:32→21:54)
[2023-05-24 06:54] LABS: Bedside Glucose 265 mg/dL (74-106)
--- NOTE | 2023-05-24 07:54 | DS.PCM_ITS ---
Providers Date of Admission: 05/20/23 Date of Discharge: 05/24/23 Primary Care Physician: No Primary Care Phys Reason For Visit: OPIOID DEPENDENCE, DIABETETES Diagnosis Discharge Diagnosis (1) Opioid withdrawal: Status: Acute Code(s): F11.93 - Opioid use, unspecified with withdrawal Medications at Discharge Home Medications doxycycline monohydrate 100 mg capsule 100 mg PO BID #10 caps 05/24/23 insulin glargine-yfgn 100 unit/mL (3 mL) subcutaneous pen 25 unit (0.25 mL) subcut DINNER #15 mL 05/24/23 Hospital Course Summary of Care Provided Minutes Spent on Discharge: 35 Hospital Course: Patient is a 47-year-old lady with history of diabetes mellitus type 1 admitted with acute opioid withdrawal 1. Acute opioid withdrawal ? Patient admitted to a monitored bed managed with Subutex taper 2. Chronic severe protein and caloric malnutrition -as evidenced by signs and symptoms of malnutrition resulting from less than 75% p.o. intake/inadequate energy intake and 28.4% unintended weight loss x1 year- Glucerna shake dietary supplement will be supplied, and increased energy diet and increase protein diet as well as increase carbohydrate diet was ordered by nutritional services 3. Diabetes mellitus type 1 ? Prescription written for insulin on discharge 4. Superficial abscess involving the left forearm ? Patient was managed with doxycycline 5. Diabetic polyneuropathy patient was placed on gabapentin Physical Exam Narrative GENERAL: cooperative HEENT: Atraumatic; normocephalic EYES; Anicteric, Normal Conjunctiva NECK; supple, normal thyroid, RESPIRATORY: Diminished to auscultation CARDIOVASCULAR: Regular S1 S2, GI: soft, normoactive bowel sounds, : No Renal angle tenderness; EXTREMITIES: No edema, no clubbing, MUSCULOSKELETAL: no muscle wasting NEURO: Awake; no lateralizing signs. SKIN: No Rash PSYCH; Flat affect Medical Records Data Medical Nutrition Assessment Dietitian: Malnutrition Criteria Met Start: 05/21/23 13:25 Freq: Status: Active Protocol: Document 05/21/23 13:25 MACHELLE (Rec: 05/21/23 13:26 MACHELLE [id number]) Nutrition Malnutrition Evidence of Malnutrition Exists Yes Malnutrition (severe): Chronic,Social/Behavioral/ Environmental Evidenced By Suboptimal Energy Intake ( Severe),Weight Loss (Severe), Physical Changes (Severe) Clinical Problem Altered Nutrient-Related Laboratory Values Etiology related to diabetes Signs/Symptoms as evidenced by gluc 293 and A1c = 13.8 Status Active Problem Chronic Disease or Condition Related Malnutrition Etiology related to drug abuse and inadequate energy intake Signs/Symptoms as evidenced by 28.4% unintended wt loss and pt meeting <75% of est nutritional needs x 1 yr - obvious fat / muscle wasting throughout body. Status Active Problem Recommendation Dietitian Recommendations/Changes Will change diet to 1800 tereza to better meet pt est nutritional needs for wt gain Will change ONS from ensure plus high protein to glucerna shake d/t issues w/ increased gluc levels Monitor for s/s of refeeding syndrome Weight / BMI Weight Weight: 35.834 kg Body Mass Index (BMI) 14.9 ABG / Lab / Microbiology Data 05/20/23 12:40 05/20/23 12:40 Laboratory: Laboratory Results - last 24 hr 05/23/23 11:20: POC Glucose 257 H 05/23/23 16:16: POC Glucose 314 H 05/23/23 21:18: POC Glucose 292 H 05/24/23 06:30: POC Glucose 265 H D/C Instructions Discharge Diet: 1800 Calorie Control Diet Discharge Activity: Return to Normal Activity Call your doctor if you observe: Fever of 101 or Higher, Shortness of breath, Fainting spells and Chest pain Meaningful Use Info Meaningful Use Diagnoses (Choose all that apply): None applicable Discharge Plan Admission Admit Date/Time: 05/20/23 14:02 Attending Provider: Giuseppe Culp Primary Care Provider: Care Physician,No Primary Consulting Providers: Glory Way; Zhao Toribio Discharge Orders/Prescriptions Prescriptions: New insulin glargine-yfgn 100 unit/mL (3 mL) Insulin Pen 25 unit subcut DINNER Qty: 15 0RF doxycycline monohydrate 100 mg Capsule 100 mg PO BID Qty: 10 0RF Referrals / Follow Up: Care Physician,No Primary [Primary Care Provider] - Disposition Disposition (needs filled in before D/C Order can be placed): Home, Self Care Charges/Coding Visit Charges Inpatient E&M: 05347 Disch Hosp >30min
[2023-05-24 09:08] VITALS: BP 128/75; PULSE 102; RESP 16; TEMP 36.6; O2SAT 97
[2023-05-24] MEDS: Enoxaparin 40 MG/0.4 ML Syringe SC (09:10)
[2023-05-24] MEDS: Doxycycline 100 MG CAPSULE PO ×2 (09:10→21:52)
[2023-05-24] MEDS: Fluconazole 100 MG Tablet PO (09:10)
[2023-05-24] MEDS: Glucerna Shake 120 ML LIQUID PO ×2 (09:14→14:52)
[2023-05-24] MEDS: hydrOXYzine PAM 25 MG Capsule 50 MG PO ×2 (09:14→21:52)
--- NOTE | 2023-05-24 11:25 | PHA.DC_ITS ---
Pharmacy [facility] has performed discharge medication reconciliation and counseling for this patient. Patient has had Lantus before, did not health counselor 1. DOXYCYCLINE 100MG PO BID X 5 DAYS The patient's discharge medication list was reviewed for discrepancies and discrepancies were resolved. The patient was counseled on the following discharge medications and changes in medications for homegoing were reviewed. The Reason for Use, instructions for use, and potential side effects were reviewed for all new medications. The patient's questions regarding all of their medications were answered. The patient was able to verbally demonstrate an understanding of their discharge medications. Patient counseled by pharmacy technician assistantJose. Medications at Discharge Home Medications doxycycline monohydrate 100 mg capsule 100 mg PO BID #10 caps 05/24/23 insulin glargine-yfgn 100 unit/mL (3 mL) subcutaneous pen 25 unit (0.25 mL) subcut DINNER #15 mL 05/24/23
[2023-05-24 12:16] LABS: Bedside Glucose > 500 mg/dL (74-106)
[2023-05-24 13:14] LABS: Glucose 549 mg/dL (74-106)
--- NOTE | 2023-05-24 13:29 | PN.HOSP_ITS ---
Reason for Visit Reason for Visit: Diagnoses Opioid use, unspecified with withdrawal (05/20/23) Subjective Subjective Patient is a 47-year-old lady with history of diabetes mellitus type 1 admitted with acute opioid withdrawal. Plan was for patient to have been discharged to an outside facility to continue with her recuperation she was however found to have blood glucose levels greater than 500 at discharge was discontinued ordered BMP started patient on IV fluids adjusted insulin therapy Objective Data Objective Data Vital Signs: Vital Signs Temp Pulse Resp BP Pulse Ox O2 Del Method 97.9 F 102 H 16 128/75 H 97 Room Air 05/24/23 09:08 05/24/23 09:08 05/24/23 09:08 05/24/23 09:08 05/24/23 09:08 05/24/23 09:08 Oxygen Delivery Method Room Air Weight: 35.834 kg Body Mass Index (BMI) 14.9 Intake & Output: Intake and Output for Last 24 Hours 05/22/23 05/23/23 05/24/23 23:59 23:59 23:59 Intake Total 300 / 300 Balance 300 / 300 Medical Nutrition Assessment Dietitian: Malnutrition Criteria Met Start: 05/21/23 13:25 Freq: Status: Active Protocol: Document 05/21/23 13:25 MACHELLE (Rec: 05/21/23 13:26 MACHELLE [id number]) Nutrition Malnutrition Evidence of Malnutrition Exists Yes Malnutrition (severe): Chronic,Social/Behavioral/ Environmental Evidenced By Suboptimal Energy Intake ( Severe),Weight Loss (Severe), Physical Changes (Severe) Clinical Problem Altered Nutrient-Related Laboratory Values Etiology related to diabetes Signs/Symptoms as evidenced by gluc 293 and A1c = 13.8 Status Active Problem Chronic Disease or Condition Related Malnutrition Etiology related to drug abuse and inadequate energy intake Signs/Symptoms as evidenced by 28.4% unintended wt loss and pt meeting <75% of est nutritional needs x 1 yr - obvious fat / muscle wasting throughout body. Status Active Problem Recommendation Dietitian Recommendations/Changes Will change diet to 1800 tereza to better meet pt est nutritional needs for wt gain Will change ONS from ensure plus high protein to glucerna shake d/t issues w/ increased gluc levels Monitor for s/s of refeeding syndrome Lab / Micro Data 05/20/23 12:40 05/24/23 12:20 Labs: Laboratory Results - last 24 hr 05/23/23 16:16: POC Glucose 314 H 05/23/23 21:18: POC Glucose 292 H 05/24/23 06:30: POC Glucose 265 H 05/24/23 11:52: POC Glucose > 500 H* 05/24/23 12:20: Glucose 549 H* Assessment & Plan Assessment/Plan (1) Opioid withdrawal: PLAN: Plan Patient is a 47-year-old lady with history of diabetes mellitus type 1 admitted with acute opioid withdrawal 1. Acute opioid withdrawal ? Patient admitted to a monitored bed managed with Subutex taper 2. Chronic severe protein and caloric malnutrition -as evidenced by signs and symptoms of malnutrition resulting from less than 75% p.o. intake/inadequate energy intake and 28.4% unintended weight loss x1 year- Glucerna shake dietary supplement will be supplied, and increased energy diet and increase protein diet as well as increase carbohydrate diet was ordered by nutritional services 3. Diabetes mellitus type 1 ? Prescription written for insulin on discharge -05/24/2023; Plan was for patient to have been discharged to an outside facility to continue with her recuperation she was however found to have blood glucose levels greater than 500 at discharge was discontinued ordered BMP started patient on IV fluids adjusted insulin therapy 4. Superficial abscess involving the left forearm ? Patient was managed with doxycycline 5. Diabetic polyneuropathy patient was placed on gabapentin 6. DVT prophylaxis ? Low risk did encourage early ambulation Time spent in the patient's overall evaluation,decision-making process, review of diagnostic data, adjustment of management, discussion with other providers, nursing nursing and ancillary staff involved in patient's care documentation, 50 Minutes Charges/Coding Visit Charges Inpatient E&M: [id number] [place] [id number]
[2023-05-24] MEDS: Insulin Lispro 100 UNIT/ML INSULN.PEN 10 UNIT SC (13:38)
[2023-05-24 14:55] VITALS: BP 135/70; PULSE 106; RESP 16; TEMP 36.6; O2SAT 98
[2023-05-24] MEDS: Insulin Glargine-YFGN 100 UNIT/ML Pen 30 UNIT SC ×2 (14:59→21:53)
[2023-05-24] MEDS: Gabapentin 400 MG Capsule PO ×2 (15:01→23:08)
[2023-05-24 15:16] LABS: Bedside Glucose 310 mg/dL (74-106)
[2023-05-24 15:20] LABS: Anion Gap 6 (5-15); BUN 17 mg/dL (7-18); BUN/Creat Ratio 23.7 RATIO (10-20); Calcium,Total 8.9 mg/dL (8.5-10.1); Chloride 101 mmol/L (98-107); Creatinine, Serum 0.72 mg/dL (0.55-1.02); EST Glomerular Filtration Rate 92 mL/min (>60); Est Glom Filt Rate - Afr Amer 111 mL/min (>60); Estimated Creatinine Clearance 53.47 ml/min; Glucose 367 mg/dL (74-106); Potassium 3.6 mmol/L (3.5-5.1); Sodium Level 133 mmol/L (136-145)
[2023-05-24 17:10] LABS: Bedside Glucose 153 mg/dL (74-106)
[2023-05-24 17:33] VITALS: BP 142/73; PULSE 95; RESP 18; TEMP 36.6; O2SAT 97
[2023-05-24 18:11] LABS: Bedside Glucose 110 mg/dL (74-106)
[2023-05-24 21:43] VITALS: BP 174/89; PULSE 99; RESP 18; TEMP 36.7; O2SAT 99
[2023-05-24] MEDS: cloNIDine HCl 0.1 MG Tablet PO (21:52)
[2023-05-24] MEDS: traZODone 100 MG Tablet PO (21:52)
[2023-05-24 22:16] LABS: Bedside Glucose 292 mg/dL (74-106)
[2023-05-25 06:00] VITALS: BP 139/66; PULSE 95; RESP 18; TEMP 36.3; O2SAT 96
--- NOTE | 2023-05-25 07:38 | PN.HOSP_ITS ---
Reason for Visit Reason for Visit: Diagnoses Opioid use, unspecified with withdrawal (05/20/23) Subjective Subjective Patient seen had a hypoglycemic episode this a.m. Subsequently adjusted insulin regimen. Patient abscess on left forearm persist discontinue doxycycline started patient on Keflex and Bactrim per her request Objective Data Objective Data Vital Signs: Vital Signs Temp Pulse Resp BP Pulse Ox O2 Del Method 97.4 F L 95 18 139/66 H 96 Room Air 05/25/23 06:00 05/25/23 06:00 05/25/23 06:00 05/25/23 06:00 05/25/23 06:00 05/25/23 06:00 Oxygen Delivery Method Room Air Weight: 35.834 kg Body Mass Index (BMI) 14.9 Intake & Output: Intake and Output for Last 24 Hours 05/23/23 05/24/23 05/25/23 23:59 23:59 23:59 Intake Total 300 / 300 2350 / 2350 600 / 600 Balance 300 / 300 2350 / 2350 600 / 600 Medical Nutrition Assessment Dietitian: Malnutrition Criteria Met Start: 05/21/23 13:25 Freq: Status: Active Protocol: Document 05/21/23 13:25 SLA (Rec: 05/21/23 13:26 [facility] [id number]) Nutrition Malnutrition Evidence of Malnutrition Exists Yes Malnutrition (severe): Chronic,Social/Behavioral/ Environmental Evidenced By Suboptimal Energy Intake ( Severe),Weight Loss (Severe), Physical Changes (Severe) Clinical Problem Altered Nutrient-Related Laboratory Values Etiology related to diabetes Signs/Symptoms as evidenced by gluc 293 and A1c = 13.8 Status Active Problem Chronic Disease or Condition Related Malnutrition Etiology related to drug abuse and inadequate energy intake Signs/Symptoms as evidenced by 28.4% unintended wt loss and pt meeting <75% of est nutritional needs x 1 yr - obvious fat / muscle wasting throughout body. Status Active Problem Recommendation Dietitian Recommendations/Changes Will change diet to 1800 tereza to better meet pt est nutritional needs for wt gain Will change ONS from ensure plus high protein to glucerna shake d/t issues w/ increased gluc levels Monitor for s/s of refeeding syndrome Lab / Micro Data 05/20/23 12:40 05/24/23 14:48 Labs: Laboratory Results - last 24 hr 05/24/23 11:52: POC Glucose > 500 H* 05/24/23 12:20: Glucose 549 H* 05/24/23 14:48: Sodium 133 L, Potassium 3.6, Chloride 101, Carbon Dioxide 26.0, Anion Gap 6, BUN 17, Creatinine 0.72, Estim Creat Clear Calc 53.47, Est GFR (MDRD) Af Amer 111, Est GFR (MDRD) Non-Af 92, BUN/Creatinine Ratio 23.7 H, Glucose 367 H, Calcium 8.9 05/24/23 14:59: POC Glucose 310 H 05/24/23 16:53: POC Glucose 153 H 05/24/23 17:52: POC Glucose 110 H 05/24/23 21:51: POC Glucose 292 H Physical Exam Narrative GENERAL: cooperative HEENT: Atraumatic; normocephalic EYES; Anicteric, Normal Conjunctiva NECK; supple, normal thyroid, RESPIRATORY: Diminished to auscultation CARDIOVASCULAR: Regular S1 S2, GI: soft, normoactive bowel sounds, : No Renal angle tenderness; EXTREMITIES: No edema, no clubbing, MUSCULOSKELETAL: no muscle wasting NEURO: Awake; no lateralizing signs. SKIN: No Rash PSYCH; Flat affect Assessment & Plan Assessment/Plan (1) Opioid withdrawal: PLAN: Plan Patient is a 47-year-old lady with history of diabetes mellitus type 1 admitted with acute opioid withdrawal 1. Acute opioid withdrawal ? Patient admitted to a monitored bed managed with Subutex taper 2. Chronic severe protein and caloric malnutrition -as evidenced by signs and symptoms of malnutrition resulting from less than 75% p.o. intake/inadequate energy intake and 28.4% unintended weight loss x1 year- Glucerna shake dietary supplement will be supplied, and increased energy diet and increase protein diet as well as increase carbohydrate diet was ordered by nutritional services 3. Diabetes mellitus type 1 ? Prescription written for insulin on discharge -05/24/2023; Plan was for patient to have been discharged to an outside facility to continue with her recuperation she was however found to have blood glucose levels greater than 500 at discharge was discontinued ordered BMP started patient on IV fluids adjusted insulin therapy ? 05/25/2023; patient had a hypoglycemic episode subsequent adjustment made to insulin regimen 4. Superficial abscess involving the left forearm ? Patient was managed with doxycycline ? 05/25/2023 discontinued doxycycline patient started on Bactrim and Keflex 5. Diabetic polyneuropathy patient was placed on gabapentin 6. DVT prophylaxis ? Low risk did encourage early ambulation Time spent in the patient's overall evaluation,decision-making process, review of diagnostic data, adjustment of management, discussion with other providers, nursing nursing and ancillary staff involved in patient's care documentation, 35 Minutes Charges/Coding Visit Charges Inpatient E&M: 78507 Subs Hosp L2
[2023-05-25 08:20] VITALS: BP 129/67; PULSE 99; RESP 16; TEMP 36.5; O2SAT 98
[2023-05-25] MEDS: Fluconazole 100 MG Tablet PO (08:27)
[2023-05-25] MEDS: hydrOXYzine PAM 25 MG Capsule 50 MG PO ×2 (08:27→15:44)
[2023-05-25] MEDS: Methocarbamol 750 MG Tablet 1500 MG PO ×2 (08:27→15:44)
[2023-05-25 08:29] LABS: Bedside Glucose 64 mg/dL (74-106)
[2023-05-25 09:23] LABS: Bedside Glucose 98 mg/dL (74-106)
--- NOTE | 2023-05-25 11:05 | ADDICTION ---
Pt plans to follow up with [facility] in [place] for inpatient treatment. [facility] will provide transportation to treatment once discharged.
[2023-05-25 11:23] LABS: Bedside Glucose 286 mg/dL (74-106)
[2023-05-25] MEDS: Cephalexin 500 MG Capsule PO (11:42)
[2023-05-25] MEDS: Smz/Tmp Ds Tablet 1 TABLET PO ×2 (11:42→16:57)
[2023-05-25] MEDS: Insulin Lispro 100 UNIT/ML INSULN.PEN SC ×2 (11:42→16:56)
--- NOTE | 2023-05-25 13:53 | NURSING ---
spoke with Bel from [facility] at phone number and inquired when pt transport will be here for pt. Bel states that she will check and call back with arrival time of transport time.
[2023-05-25 15:36] VITALS: BP 135/76; PULSE 96; RESP 18; TEMP 36.6; O2SAT 98
[2023-05-25] MEDS: Dicyclomine 10 MG Capsule 20 MG PO (15:43)
[2023-05-25] MEDS: cloNIDine HCl 0.1 MG Tablet PO (15:43)
[2023-05-25 17:16] LABS: Bedside Glucose 235 mg/dL (74-106)
--- NOTE | 2023-05-25 17:33 | NURSING ---
INFORMED PER [facility]REL FINISHER ER AND SECURITY STATED THEY HAVE NO BELONGINGS OR BLACK PURSE, IN TO INFORM PATIENT. PT STATES ALRIGHT LETS GO I'M READY TO GO VERBALIZED WASN'T SURE IF SHE COULD WALK TO THE FRONT ENTERENCE. STRAIGHT EDGER JOSE LUIS ASKED TO ASSIST WITH WHEELCHAIR, DISCHARGE PACKET GIVEN TO GO WITH PATIENT.
--- NOTE | 2023-05-25 17:33 | PCA ---
WENT IN TO UNLOCK PATIENT BELONGINGS PATIENT SAID SHE HAD A LITTLE BLACK PURSE WITH HER LICENSE IN IT. THERE ISNT A BLACK PURSE WITH HER BELONGING BAGS. THIS SUPERVISOR YARD CALLED THE EXCHANGE FLOOR MANAGER AND ALSO THE ED. NO ONE HAD A PURSE LOCKED UP DOWN THERE. THIS SUPERVISOR YARD TOLD THE CHARGE NURSE AND NURSE OF THESE FINDINGS
== END 2023-05-25 17:36 | disposition home or self-care (01) ==
LOC: ED 13:47 → MS3 05-21 07:59
PROVIDERS: Internal Medicine; Admitting Provider Internal Medicine; Emergency Provider Emergency Medicine; Visit Provider Internal Medicine
DX: F11.23 Opioid dependence with withdrawal (principal); E43 Unspecified severe protein-calorie malnutrition; E10.42 Type 1 diabetes mellitus with diabetic polyneuropathy; Z79.4 Long term (current) use of insulin; L02.414 Cutaneous abscess of left upper limb; F17.210 Nicotine dependence, cigarettes, uncomplicated; Z68.1 Body mass index [BMI] 19.9 or less, adult
CPT/HCPCS: 36415; 80048; 80307; 81025; 82077; 82947; 82962; 83036; 85025; 99283; H0012